=== PATIENT | male | born 1975 | race Caucasian/White ===

== ENCOUNTER 2019-07-02 19:20 | Emergency (ER) | payer MEDICAID ==
[~2019-07-02] VITALS: Ht 167.6 cm; Wt 87.0 kg
[2019-07-02] MEDS ORDERED: SODIUM CHLORIDE FLUSH 10ML SYR IVF ONE (19:30)
[2019-07-02] MEDS ORDERED: SODIUM CHLORIDE 0.9% 1,000ML IVBOLUS ONE ×2 (19:30→20:30)
[2019-07-02 19:43] LABS: MEAN CORPUSCULAR HEMOGLOBIN 33.2 pg (27.5-34.5); MEAN CORPUSCULAR HGB CONC 33.3 g/dL (33.2-36.2); MEAN CORPUSCULAR VOLUME 99.6 fL (81-97); PLATELET COUNT 322 x10^3/uL (130-400); RED BLOOD COUNT 4.35 x10^6/uL (4.38-5.82); RED CELL DISTRIBUTION WIDTH 15.6 % (9.4-14.8)
--- NOTE | 2019-07-02 19:45 | NUR ---
pt to room from lobby
[2019-07-02 19:55] LABS: ALANINE AMINOTRANSFERASE 49 U/L (12-78); ALBUMIN 3.4 g/dL (3.4-5.0); ANION GAP 17 mmol/L (5-15); CALCIUM 8.8 mg/dL (8.5-10.1); CHLORIDE 97 mmol/L (98-107); CREATININE 1.39 mg/dL (0.7-1.3)
[2019-07-02 19:57] LABS: ALKALINE PHOSPHATASE 131 U/L (45-117); TOTAL PROTEIN 7.8 g/dL (6.4-8.2)
[2019-07-02 20:10] LABS: BASOPHILS # (AUTO) 0.04 x10^3/uL (0-0.1); BASOPHILS % (AUTO) 0 % (0-1); EOSINOPHILS # (AUTO) 0.01 x10^3/uL (0-0.4); EOSINOPHILS % (AUTO) 0 % (1-7); LYMPHOCYTES # (AUTO) 1.14 x10^3/uL (1-3.4); LYMPHOCYTES % (AUTO) 8 % (22-44); MD SCAN; MONOCYTES # (AUTO) 1.64 x10^3/uL (0.2-0.8); MONOCYTES % (AUTO) 12 % (2-9); NEUTROPHILS # (AUTO) 10.64 x10^3/uL (1.8-6.8); NEUTROPHILS % (AUTO) 79 % (42-75)
[2019-07-02] MEDS ORDERED: ONDANSETRON 2MG/ML, 2ML ONE (20:25)
[2019-07-02] MEDS ORDERED: ONDANSETRON 2MG/ML, 2ML IVPush ONE (20:30)
[2019-07-02] MEDS ORDERED: PANTOPRAZOLE 40 MG IV ONE (20:41)
[2019-07-02] MEDS ORDERED: PANTOPRAZOLE 40 MG IV IVPush ONE (21:00)
[2019-07-02 21:53] VITALS: BP 147/100
[2019-07-02] MEDS ORDERED: PROCHLORPERAZINE 5 MG/ML, 2ML ONE (21:57)
[2019-07-02] MEDS ORDERED: LORazepam 2 MG/ML, 1ML ONE (21:58)
[2019-07-02] MEDS ORDERED: LORazepam 2 MG/ML, 1ML IVPush ONE (22:00)
[2019-07-02] MEDS ORDERED: PROCHLORPERAZINE 5 MG/ML, 2ML IVPush ONE (22:00)
== END 2019-07-02 23:06 | disposition home or self-care (01) ==
LOC: ED 22:13
DX: R11.2 Nausea with vomiting, unspecified (principal); R19.7 Diarrhea, unspecified; R00.0 Tachycardia, unspecified; F17.200 Nicotine dependence, unspecified, uncomplicated
CPT/HCPCS: 36415; 80053; 83690; 85025; 96361; 96374; 96375; 99284; C9113; J0780; J2060; J2405; J7030

== ENCOUNTER 2019-09-02 11:37 | Emergency (ER) | payer MEDICAID ==
[~2019-09-02] VITALS: Ht 167.6 cm; Wt 78.2 kg
--- NOTE | 2019-09-02 12:08 | NUR ---
PT CAME IN CO OF BILAT LEG PAIN. PT ADMITS TO "HAVING 9 SHOTS OF LIQUOUR THIS MORNING".
[2019-09-02] MEDS ORDERED: LORazepam 1MG TABLET ONE (12:24)
[2019-09-02 12:30] VITALS: BP 144/98
[2019-09-02] MEDS ORDERED: LORazepam 1MG TABLET PO ONE (12:30)
[2019-09-02 12:57] LABS: ALANINE AMINOTRANSFERASE 69 U/L (12-78); ANION GAP 10 mmol/L (5-15); CALCIUM 8.3 mg/dL (8.5-10.1); CHLORIDE 105 mmol/L (98-107); CREATININE 0.84 mg/dL (0.7-1.3)
[2019-09-02 12:59] LABS: ALKALINE PHOSPHATASE 181 U/L (45-117); BILIRUBIN,TOTAL 0.6 mg/dL (0.2-1.0); MEAN CORPUSCULAR HEMOGLOBIN 29.8 pg (27.5-34.5); MEAN CORPUSCULAR HGB CONC 32.8 g/dL (33.2-36.2); MEAN CORPUSCULAR VOLUME 90.9 fL (81-97); MEAN PLATELET VOLUME 8.3 fL (7.4-10.4); PLATELET COUNT 298 x10^3/uL (130-400); RED BLOOD COUNT 4.19 x10^6/uL (4.38-5.82); RED CELL DISTRIBUTION WIDTH 19.1 % (9.4-14.8); TOTAL PROTEIN 7.5 g/dL (6.4-8.2)
[2019-09-02] MEDS ORDERED: POTASSIUM CHLORIDE 20 MEQ TAB.ER.PRT ONE (13:53)
[2019-09-02] MEDS ORDERED: POTASSIUM CHLORIDE 20 MEQ TAB.ER.PRT PO ONE (14:00)
[2019-09-02 14:05] LABS: MD YES
[2019-09-02 14:24] LABS: BASOS#(MANUAL) 0.04 x10^3/uL (0-0.1); BASOS% (MANUAL) 1 % (0-1); EOS#(MANUAL) 0.04 x10^3/uL (0.0-0.4); EOS% (MANUAL) 1 % (1-7); LYMPH#(MANUAL) 1.94 x10^3/uL (1-3.4); LYMPHS% (MANUAL) 45 % (22-44); MONOS#(MANUAL) 0.65 x10^3/uL (0.3-2.7); MONOS% (MANUAL) 15 % (2-9); SEG#(MANUAL) 1.63 x10^3/uL (1.8-6.8); SEGS% (MANUAL) 38 % (42-75)
[2019-09-02 14:25] LABS: ANISOCYTOSIS 1+; HYPOCHROMIA 1+
[2019-09-02 14:26] LABS: <PLATELET ESTIMATE> ADEQUATE
[2019-09-02 14:27] LABS: <PLT MORPHOLOGY> NORMAL PLT MORPH
== END 2019-09-02 15:05 | disposition home or self-care (01) ==
LOC: ED 13:22
DX: F10.20 Alcohol dependence, uncomplicated (principal); Y90.0 Blood alcohol level of less than 20 mg/100 ml; E87.6 Hypokalemia; Z72.9 Problem related to lifestyle, unspecified; J44.9 Chronic obstructive pulmonary disease, unspecified; R06.02 Shortness of breath; R00.0 Tachycardia, unspecified
CPT/HCPCS: 36415; 80053; 85025; 93005; 99284

== ENCOUNTER 2020-08-05 10:30 | Inpatient (IN) | payer MEDICAID ==
[~2020-08-05] VITALS: Ht 167.6 cm; Wt 79.0 kg
--- NOTE | 2020-08-05 10:44 | NUR ---
pt bib for shaking, nausea, and feeling unwell starting last night at 1 am. pt w/ hx of etoh, drinks 1 pint a day with 5 beers. pts last drink this morning. requesting atgilbert. Calista HARDING at bedside for evaluation. pt attached to monitors. vss. ayers.
[2020-08-05] MEDS ORDERED: ONDANSETRON 2MG/ML, 2ML IVPush ONE (11:00)
[2020-08-05] MEDS ORDERED: FAMOTIDINE 20 MG/2 ML IVPush ONE (11:00)
[2020-08-05] MEDS ORDERED: SODIUM CHLORIDE 0.9% 1,000ML IVBOLUS ONE (11:00)
[2020-08-05] MEDS ORDERED: SODIUM CHLORIDE FLUSH 10ML SYR IVF ONE (11:00)
[2020-08-05] MEDS ORDERED: THIAMINE 100 MG in SODIUM CHLORIDE 0.9% 50 ML IVPB ONE (11:00)
[2020-08-05] MEDS ORDERED: ONDANSETRON 2MG/ML, 2ML ONE (11:32)
[2020-08-05] MEDS ORDERED: FAMOTIDINE 20 MG/2 ML ONE (11:32)
[2020-08-05 11:36] LABS: BASOPHILS % (AUTO) 0 % (0-1); EOSINOPHILS % (AUTO) 1 % (1-7); LYMPHOCYTES % (AUTO) 19 % (22-44); MEAN CORPUSCULAR HEMOGLOBIN 29.7 pg (27.5-34.5); MEAN CORPUSCULAR HGB CONC 32.5 g/dL (33.2-36.2); MEAN PLATELET VOLUME 10.8 fL (7.4-10.4); MONOCYTES % (AUTO) 14 % (2-9); NEUTROPHILS % (AUTO) 66 % (42-75); PLATELET COUNT 152 x10^3/uL (130-400); RED BLOOD COUNT 3.66 x10^6/uL (4.38-5.82); RED CELL DISTRIBUTION WIDTH 22.4 % (9.4-14.8)
[2020-08-05 11:46] LABS: ALANINE AMINOTRANSFERASE 37 U/L (12-78); ALBUMIN 3.2 g/dL (3.4-5.0); ANION GAP 15 mmol/L (5-15); CALCIUM 7.9 mg/dL (8.5-10.1); CHLORIDE 88 mmol/L (98-107); CREATININE 1.26 mg/dL (0.7-1.3)
[2020-08-05 11:49] LABS: ALKALINE PHOSPHATASE 294 U/L (45-117); BILIRUBIN,TOTAL 6.8 mg/dL (0.2-1.0); CREATINE KINASE, TOTAL 48 U/L (39-308); TOTAL PROTEIN 7.4 g/dL (6.4-8.2)
[2020-08-05 11:52] LABS: <PLATELET ESTIMATE> ADEQUATE; ANISOCYTOSIS 1+; HYPOCHROMIA 1+; LARGE PLATELETS 1+; MD MORPH REVIEW ONLY; POLYCHROMASIA 1+
[2020-08-05] MEDS ORDERED: POTASSIUM CHLORIDE 20 MEQ PACKET ONE ×2 (12:11→12:21)
[2020-08-05] MEDS ORDERED: NS + 40MEQ KCL 1,000 ML IV ONE (12:18)
[2020-08-05] MEDS ORDERED: LORazepam 2 MG/ML, 1ML ONE (12:19)
[2020-08-05] MEDS: NS + 40MEQ KCL 1,000 ML IV SCH ×2 (12:24→19:41)
[2020-08-05] MEDS ORDERED: LORazepam 2 MG/ML, 1ML IVPush ONE (12:30)
[2020-08-05] MEDS ORDERED: POTASSIUM CHLORIDE 20 MEQ PACKET PO ONE (12:30)
--- NOTE | 2020-08-05 12:31 | NUR ---
pt medicated per emar.
[2020-08-05 13:11] LABS: FREE T4 (FREE THYROXINE) 1.74 ng/dL (0.76-1.46)
[2020-08-05 13:17] LABS: MICROSCOPIC INDICATED
[2020-08-05] MEDS ORDERED: CEFTRIAXONE 1,000 MG in DEXTROSE 5% 50 ML IVPB ONE (14:00)
[2020-08-05] MEDS ORDERED: LABETALOL 5MG/ML, 20ML IVPush PRN (14:30)
[2020-08-05] MEDS ORDERED: BACLOFEN 10 MG TABLET PO PRN (14:30)
[2020-08-05] MEDS ORDERED: ACETAMINOPHEN 325 MG TABLET PO PRN (14:30)
[2020-08-05] MEDS ORDERED: LORazepam 2 MG/ML, 1ML IV PRN ×3 (14:30)
[2020-08-05] MEDS ORDERED: ONDANSETRON 2MG/ML, 2ML IVPush PRN (14:30)
[2020-08-05] MEDS ORDERED: ONDANSETRON ODT 4 MG PO PRN (14:30)
[2020-08-05] MEDS ORDERED: SODIUM CHLORIDE FLUSH 10ML SYR IVF PRN (14:30)
[2020-08-05] MEDS ORDERED: BUTALB/APAP/CAFFEINE 50MG/325MG/40MG PO PRN ×2 (14:30)
[2020-08-05] MEDS ORDERED: GABAPENTIN 300 MG CAPSULE PO PRN (14:30)
[2020-08-05] MEDS ORDERED: MAGNESIUM SULFATE PMX 2GM/50ML 50 ML IV ONE ×2 (14:30→18:00)
[2020-08-05] MEDS ORDERED: ENALAPRILAT 1.25 MG/ML, 2ML IVPush PRN (14:30)
[2020-08-05] MEDS ORDERED: POTASSIUM CHLORIDE 40 MEQ in SODIUM CHLORIDE 0.9% 1,000 ML IV ONE (14:30)
--- NOTE | 2020-08-05 14:30 | NUR ---
Task RN: Attempted to start 2nd line. Will confirm compatibilty of Rocephin in D5W with NS+KCl
--- NOTE | 2020-08-05 14:48 | NUR ---
THIS RN ATTEMPTED REPORT X2
--- NOTE | 2020-08-05 14:59 | NUR ---
report called to sabiha samaniego
[2020-08-05] MEDS ORDERED: POTASSIUM CHLORIDE 20 MEQ in LACTATED RINGERS 1,000 ML IV SCH (16:20)
[2020-08-05] MEDS ORDERED: LORazepam 0.5MG TABLET ONE ×2 (16:24→18:20)
[2020-08-05] MEDS: LORazepam 2 MG/ML, 1ML IV PRN ×4 (16:29→21:19)
[2020-08-05] MEDS ORDERED: CHLORPROMAZINE 100MG TAB PO PRN (17:30)
[2020-08-05] MEDS ORDERED: CEFTRIAXONE 1,000 MG in DEXTROSE 5% 50 ML IVPB SCH (18:00)
[2020-08-05] MEDS ORDERED: NICOTINE 14MG/24 HR PATCH.TD24 TD SCH (18:00)
[2020-08-05] MEDS ORDERED: ALBUTEROL HFA 90 MCG/SPRAY INH PRN (18:00)
[2020-08-05 18:13] LABS: INTERNATIONAL NORMALIZED RATIO 1.35 (0.93-1.1); PROTHROMBIN TIME 14.4 Seconds (9.6-11.5)
[2020-08-05] MEDS ORDERED: LACT20SO13 PO (18:30)
[2020-08-05] MEDS ORDERED: PRAZ1CAP2 PO (18:30)
[2020-08-05] MEDS ORDERED: HYDR25TA6 PO (18:30)
[2020-08-05] MEDS ORDERED: NALT50TA PO (18:30)
[2020-08-05] MEDS ORDERED: OMEP20CA20 PO (18:31)
[2020-08-05 18:45] VITALS: BP 124/83
[2020-08-05] MEDS ORDERED: MELATONIN 5 MG TABLET PO SCH (21:00)
[2020-08-06] MEDS ORDERED: CEFTRIAXONE 1,000 MG in DEXTROSE 5% 50 ML IVPB SCH (02:00)
[2020-08-06] MEDS ORDERED: SENNA/DOCUSATE TABLET PO SCH (09:00)
[2020-08-06] MEDS ORDERED: MAGNESIUM OXIDE 400 MG TABLET PO SCH (09:00)
== END 2020-08-05 22:05 | disposition left against medical advice (07) | DRG 640 ==
LOC: ED 12:34 → EDIP 14:07 → 4WST 16:19
PROVIDERS: ADMIT Hospitalist; ATTEND Hospitalist
DX: E87.6 Hypokalemia (principal); E05.91 Thyrotoxicosis, unspecified with thyrotoxic crisis or storm; F10.239 Alcohol dependence with withdrawal, unspecified; N39.0 Urinary tract infection, site not specified; R17 Unspecified jaundice; D64.9 Anemia, unspecified; E87.1 Hypo-osmolality and hyponatremia; E83.42 Hypomagnesemia; E83.51 Hypocalcemia; F17.210 Nicotine dependence, cigarettes, uncomplicated; J44.9 Chronic obstructive pulmonary disease, unspecified; R73.9 Hyperglycemia, unspecified; F32.9 Major depressive disorder, single episode, unspecified; F41.9 Anxiety disorder, unspecified; Z59.0 Homelessness
CPT/HCPCS: 36415; 76700; 80053; 80320; 81001; 82550; 83690; 83735; 84439; 84443; 84481; 85025; 85610; 93005; 96374; G0378; J0696; J2405; J3411; J3480; G0480; J2060; J3475; J7030; J7120